=== PATIENT | female | born 1970 | race African-American/Black ===

== ENCOUNTER → 2020-07-14 | Outpatient (CLI) | payer BC, OTHER | LOC: RAD 15:49 | PROVIDERS: ATTEND Family Medicine | DX: M47.812 Spondylosis without myelopathy or radiculopathy, cervical region (principal); G31.89 Other specified degenerative diseases of nervous system; M54.5 Low back pain ==

== ENCOUNTER → 2020-11-29 | Outpatient (CLI) | payer BC, OTHER | LOC: ULTRA 10:38 | PROVIDERS: ATTEND Family Medicine | DX: Z12.31 Encounter for screening mammogram for malignant neoplasm of breast (principal); I70.202 Unspecified atherosclerosis of native arteries of extremities, left leg; I70.291 Other atherosclerosis of native arteries of extremities, right leg ==

== ENCOUNTER 2020-12-09 10:55 | Observation (INO) | payer BC, OTHER ==
[~2020-12-09] VITALS: Ht 157.5 cm; Wt 97.7 kg
[2020-12-09 12:00] VITALS: BP 133/57
[2020-12-09 12:54] LABS: CALCIUM 8.9 mg/dL (8.5-10.1); CREATININE 1.9 mg/dL (0.6-1.0); POTASSIUM 4.7 mmol/L (3.5-5.1)
[2020-12-09] MEDS ORDERED: ASA81BEC PO (13:33)
[2020-12-09] MEDS ORDERED: CARVEDILOL12.5 MG PO (13:34)
[2020-12-09] MEDS ORDERED: HYDROCHLOROTH12.5 M2 PO (13:35)
[2020-12-09] MEDS ORDERED: LANTUSSOLASTAR SUBQ (13:36)
[2020-12-09] MEDS ORDERED: NOVOLIN 70100 UNIT/3 SUBQ (13:37)
[2020-12-09] MEDS ORDERED: LISINOPRIL20 MG PO (13:38)
[2020-12-09] MEDS ORDERED: NORVASC10 MG PO (13:40)
[2020-12-09] MEDS ORDERED: ROSUVASTATIN CA20 MG PO (13:40)
[2020-12-09] MEDS ORDERED: PLAVIX 75 MG TA75 MG PO (15:39)
--- NOTE | 2020-12-09 16:13 | NUR ---
PT TO FLOOR POST RUN OFF STENT TO LLEG, R FEM ARTERY ENTRY, MYNX APPLIED. SITE CDI PT DROWSY AT THIS TIME, VS WNL. FOOD AND REFRESHMENTS GAVE TO PT. PT RESTING AND WILLL DISCHARGE THIS EVENING. SAMUEL [id number]
[2020-12-09 16:31] VITALS: BP 127/63
== END 2020-12-09 18:30 | disposition home or self-care (01) ==
LOC: CATH 10:55 → 2N 16:01
PROVIDERS: ADMIT Nuclear Medicine Nuclear Cardiology; ATTEND Nuclear Medicine Nuclear Cardiology
DX: I73.9 Peripheral vascular disease, unspecified (principal); E78.00 Pure hypercholesterolemia, unspecified; I10 Essential (primary) hypertension; E11.65 Type 2 diabetes mellitus with hyperglycemia; Z79.4 Long term (current) use of insulin; Z79.899 Other long term (current) drug therapy

== ENCOUNTER → 2020-12-16 | Outpatient (CLI) | payer BC, OTHER ==
[~2020-12-16] MED LIST: ASA81BEC PO; CARVEDILOL12.5 MG PO; HYDROCHLOROTH12.5 M2 PO; LANTUSSOLASTAR SUBQ; LISINOPRIL20 MG PO; NORVASC10 MG PO; NOVOLIN 70100 UNIT/3 SUBQ; PLAVIX 75 MG TA75 MG PO; ROSUVASTATIN CA20 MG PO
== END ==
LOC: SJCVCIMAG 11:25
PROVIDERS: ATTEND Nuclear Medicine Nuclear Cardiology
DX: R19.09 Other intra-abdominal and pelvic swelling, mass and lump (principal); M79.604 Pain in right leg; M79.81 Nontraumatic hematoma of soft tissue; Z90.710 Acquired absence of both cervix and uterus

== ENCOUNTER → 2021-03-07 | Outpatient (CLI) | payer BC, OTHER | LOC: SJCVCIMAG 11:01 | PROVIDERS: ATTEND Nuclear Medicine Nuclear Cardiology | DX: I65.23 Occlusion and stenosis of bilateral carotid arteries (principal); I70.201 Unspecified atherosclerosis of native arteries of extremities, right leg; E78.00 Pure hypercholesterolemia, unspecified; Z79.82 Long term (current) use of aspirin; Z79.899 Other long term (current) drug therapy; Z95.820 Peripheral vascular angioplasty status with implants and grafts; Z78.0 Asymptomatic menopausal state ==

== ENCOUNTER → 2021-06-02 | Outpatient (CLI) | payer BC, OTHER | LOC: SJCVCIMAG 07:45 | PROVIDERS: ATTEND Internal Medicine | DX: I49.3 Ventricular premature depolarization (principal); I34.0 Nonrheumatic mitral (valve) insufficiency; I10 Essential (primary) hypertension; E78.5 Hyperlipidemia, unspecified; E11.9 Type 2 diabetes mellitus without complications; Z86.16 Personal history of COVID-19; Z79.82 Long term (current) use of aspirin; Z79.899 Other long term (current) drug therapy; Z88.2 Allergy status to sulfonamides; Z88.8 Allergy status to other drugs, medicaments and biological substances ==

== ENCOUNTER → 2021-09-01 | Outpatient (CLI) | payer BC, OTHER | LOC: SJCVCIMAG 06:49 | PROVIDERS: ATTEND Nuclear Medicine Nuclear Cardiology | DX: I70.203 Unspecified atherosclerosis of native arteries of extremities, bilateral legs (principal); E78.5 Hyperlipidemia, unspecified; E11.9 Type 2 diabetes mellitus without complications; E78.00 Pure hypercholesterolemia, unspecified; I10 Essential (primary) hypertension; Z86.16 Personal history of COVID-19; Z82.49 Family history of ischemic heart disease and other diseases of the circulatory system; Z88.5 Allergy status to narcotic agent; Z88.8 Allergy status to other drugs, medicaments and biological substances; Z79.82 Long term (current) use of aspirin; Z79.4 Long term (current) use of insulin; Z79.899 Other long term (current) drug therapy ==

== ENCOUNTER → 2021-09-09 | Outpatient (CLI) | payer BC, OTHER ==
[~2021-09-09] VITALS: Ht 157.5 cm; Wt 99.8 kg
[~2021-09-09] MED LIST changes: +OMEPRAZOLE 20 M20 M1 PO
[2021-09-09 07:53] LABS: HEMATOCRIT 33.2 % (37.0-47.0); HEMOGLOBIN 10.8 gm/dL (12.0-15.0); MCH 27.4 pg (26.0-34.0); MCHC 32.5 g/dL (28.0-37.0); MCV 84.3 fL (80.0-100.0); RBC 3.94 mil/uL (4.20-5.00); RDW 14.6 % (10.5-14.5); WBC 7.8 thou/uL (4.0-11.0)
[2021-09-09 08:00] LABS: CALCIUM 9.4 mg/dL (8.5-10.1); CREATININE 2.4 mg/dL (0.6-1.0); POTASSIUM 4.7 mmol/L (3.5-5.1)
== END | disposition home or self-care (01) ==
LOC: CATH 06:43
PROVIDERS: ATTEND Nuclear Medicine Nuclear Cardiology
DX: I70.212 Atherosclerosis of native arteries of extremities with intermittent claudication, left leg (principal); I70.1 Atherosclerosis of renal artery; M79.605 Pain in left leg; M79.604 Pain in right leg; I10 Essential (primary) hypertension; E78.5 Hyperlipidemia, unspecified; E10.9 Type 1 diabetes mellitus without complications; E66.9 Obesity, unspecified; Z98.890 Other specified postprocedural states; Z79.899 Other long term (current) drug therapy; Z87.891 Personal history of nicotine dependence; Z79.4 Long term (current) use of insulin